=== PATIENT | female | born 1970 | race Caucasian/White ===

== ENCOUNTER 2021-05-08 13:12 | Emergency (ER) | payer OTHER ==
[~2021-05-08] VITALS: Ht 160 cm; Wt 69.5 kg
[2021-05-08 13:30] VITALS: BP 139/79
--- NOTE | 2021-05-08 13:49 | RAD ---
AP, lateral, and oblique views of the left hand were performed. History: Hand pain after injury Comparison: none. There is a crush fracture of the proximal aspect of the third distal phalanx. There is associated sub cutaneous swelling. Additionally there is a fracture of the distal aspect of the distal phalanx of th e fourth digit again with subcutaneous swelling. Electronically signed by: Geovanni Alarcon MD (05/08/2021 1:47 PM) [id number]
[2021-05-08] MEDS ORDERED: HYDROcodone/APAP 7.5/325MG 1 TAB TABLET PO ONE (14:15)
[2021-05-08] MEDS ORDERED: LIDOCAINE 2% 20 ML VIAL. IJ ONE (14:15)
[2021-05-08] MEDS ORDERED: DIPH,PERTUSS(ACELL),TET VAC/PF 0.5 ML SYRINGE. VAX IM ONE (14:15)
[2021-05-08] MEDS ORDERED: ONDANSETRON PF 4 MG/2 ML VIAL. ONE (14:36)
[2021-05-08] MEDS ORDERED: ONDANSETRON PF 4 MG/2 ML VIAL. IVP ONE (15:00)
[2021-05-08] MEDS ORDERED: CEPH500T PO (15:27)
[2021-05-08] MEDS ORDERED: HYDR-2759 PO (15:27)
--- NOTE | 2021-05-08 15:29 | PHYS DOC ---
Past History Past Surgical History: Tonsillectomy Alcohol Use: Occasionally General Adult EDM: Chief Complaint: LACERATION/AVULSION HPI: HPI: 51-year-old female presents with a left third and fourth digit pain. She has a crush injury from a pallet being pushed against a metal rack. Her fingers were stuck between the 2. Patient has lacerations that she assumes will need repair. She is also worried about fracture. She denies any other injuries at this time. Review of Systems: Review of Systems: Constitutional: Denies fever or chills Eyes: Denies change in visual acuity HENT: Denies nasal congestion or sore throat Respiratory: Denies cough or shortness of breath Cardiovascular: Denies chest pain or edema GI: Denies abdominal pain, nausea, vomiting, bloody stools or diarrhea : Denies dysuria Musculoskeletal: Denies back pain or joint pain Integument: Laceration left third and fourth digit Neurologic: Denies headache, focal weakness or sensory changes Endocrine: Denies polyuria or polydipsia Lymphatic: Denies swollen glands Psychiatric: Denies depression or anxiety Current Medications: Current Meds: Current Medications Medications (Trade) Dose Ordered Sig/Nu Start Time Stop Time Status Last Admin Dose Admin Acetaminophen/ Hydrocodone Bitart (Lortab 7.5/325) 1 tab 1X ONCE 05/08/21 14:15 05/08/21 14:16 DC Diphtheria/ Pertussis/Tetanus Vacc (ADACEL TDap SYRINGE) 0.5 ml ONCE ONCE 05/08/21 14:15 05/08/21 14:16 DC Fentanyl Citrate (Fentanyl 2ml Vial) 50 mcg 1X ONCE 05/08/21 15:00 05/08/21 15:01 DC Lidocaine HCl (Lidocaine 2%) 20 ml 1X ONCE 05/08/21 14:15 05/08/21 14:24 DC Ondansetron HCl (Zofran) 4 mg 1X ONCE 05/08/21 15:00 05/08/21 15:01 DC Allergies: Allergies: Allergies Coded Allergies Type Severity Reaction Last Updated Verified Penicillins Allergy Unknown 05/08/21 Yes codeine Allergy Unknown 05/08/21 Yes Physical Exam: PE: Constitutional: Well developed, well nourished, no acute distress, non-toxic appearance. [] HENT: Normocephalic, atraumatic, bilateral external ears normal, oropharynx moist, no oral exudates, nose normal. [] Eyes: PERRLA, EOMI, conjunctiva normal, no discharge. [] Neck: Normal range of motion, no tenderness, supple, no stridor. [] Cardiovascular:Heart rate regular rhythm, no murmur [] Lungs & Thorax: Bilateral breath sounds clear to auscultation [] Abdomen: Bowel sounds normal, soft, no tenderness, no masses, no pulsatile masses. [] Skin: 3 cm linear laceration of the left third digit, 5 mm curved laceration of the left fourth digit [] Back: No tenderness, no CVA tenderness. [] Extremities: No tenderness, no cyanosis, no clubbing, ROM intact, no edema. [] Neurologic: Alert and oriented X 3, normal motor function, normal sensory function, no focal deficits noted. [] Psychologic: Affect normal, judgement normal, mood normal. [] Current Patient Data: Vital Signs: Vital Signs Date Time Temp Pulse Resp B/P (MAP) Pulse Ox O2 Delivery O2 Flow Rate FiO2 05/08/21 13:30 98.0 68 18 139/79 (99) 97 Room Air EKG: EKG: [] Radiology/Procedures: Radiology/Procedures: [] Impressions: AP, lateral, and oblique views of the left hand were performed. History: Hand pain after injury Comparison: none. There is a crush fracture of the proximal aspect of the third distal phalanx. T here is associated subcutaneous swelling. Additionally there is a fracture of the distal aspect of the distal phalanx of the fourth digit again with subcutaneous swelling. Electronically signed by: Geovanni Chambers MD (05/08/2021 1:47 PM) [id number] DICTATED AND SIGNED BY: GEOVANNI CHAMBERS MD DATE: 05/08/21 1344 CC: YADIRA MCCLAIN DO; EMERGENCY,DEPARTMENT; PCP,NO ~MTH0 0 Heart Score: C/O Chest Pain: N/A Risk Factors: Risk Factors: DM, Current or recent (<one month) smoker, HTN, HLP, family history of CAD, obesity. Risk Scores: Score 0 - 3: 2.5% MACE over next 6 weeks - Discharge Home Score 4 - 6: 20.3% MACE over next 6 weeks - Admit for Clinical Observation Score 7 - 10: 72.7% MACE over next 6 weeks - Early Invasive Strategies Course & Med Decision Making: Course & Med Decision Making Pertinent Labs and Imaging studies reviewed. (See chart for details) The patient does have a fracture of the third and fourth digit of the left hand. These are open fracture so I will treat with a gram of Rocephin IV. Patient is also given 50 mg of fentanyl for pain control and 4 mg of Zofran. I repaired the patient's wound with sutures and the fourth digit with skin glue. See note below for more details. I will discharge patient on 7 days of Keflex. She is stable for discharge at this time. [] Dragon Disclaimer: Dragon Disclaimer: This electronic medical record was generated, in whole or in part, using a voice recognition dictation system. Departure Departure: Impression: Primary Impression: Laceration of left middle finger Additional Impressions: Laceration of left ring finger Fracture of phalanx of left middle finger Fracture of phalanx of left ring finger Disposition: 01 HOME / SELF CARE / HOMELESS Condition: IMPROVED Referrals: PCPDELIO (PCP) Patient Instructions: Finger Fracture, [id number], Sutured Wound Care, [id number], Tissue Adhesive Wound Care, [id number] Scripts Cephalexin (CEPHALEXIN) 500 Mg Tablet 1 TAB PO TID for open wound for 7 Days, #21 TAB Prov: YADIRA MCCLAIN DO 05/08/21 Hydrocodone/Acetaminophen (Hydrocodone-Acetamin 5-325 mg) 1 Each Tablet 1 EACH PO Q4-6HRS PRN for PAIN, #10 TAB Prov: YADIRA MCCLAIN DO 05/08/21 Laceration Repair Lac Repair Indication: 3 cm linear laceration of the left third digit. 5 mm curved laceration of the left fourth digit. Procedure: I obtained verbal consent from the patient for suture repair of her laceration and tissue adhesive repair of her second laceration. The first 1 was anesthetized with 2% lidocaine without epinephrine. 2 cc were used. Once good anesthesia was achieved, the wound was thoroughly irrigated. No foreign bodies were found. No anesthesia was used on the second wound. It was cleaned in a similar fashion. I repaired the first laceration with 4-0 Ethilon sutures in an interrupted fashion. There were 7 sutures total. There was good skin approx imation. Bleeding was controlled. A clean nonadherent dressing and splint was applied. The second laceration was repaired with 2 layers of Dermabond skin adhesive. There was good skin approximation. No dressing was applied. The finger was placed in a splint. Total repaired wound length: 3 cm; 5 mm. Other Items: 2 wounds The patient tolerated the procedure well. Complications: Fractures, dirty wounds. YADIRA MCCLAIN DO May 08, 2021 15:29
[2021-05-08] MEDS ORDERED: cefTRIAXone SODIUM 1 GM VIAL ONE (15:39)
== END 2021-05-08 16:05 | disposition home or self-care (01) ==
LOC: ER 13:12
DX: S62.633A Displaced fracture of distal phalanx of left middle finger, initial encounter for closed fracture (principal); S62.635A Displaced fracture of distal phalanx of left ring finger, initial encounter for closed fracture; Z88.0 Allergy status to penicillin; Z88.5 Allergy status to narcotic agent; W23.0XXA Caught, crushed, jammed, or pinched between moving objects, initial encounter; Y93.89 Activity, other specified; Y92.89 Other specified places as the place of occurrence of the external cause; Y99.8 Other external cause status
CPT/HCPCS: 12002; 29130; 73130; 90471; 90715; 96365; 96375; 99284; J0696; J2001; J2405; J3010